=== PATIENT | male | born 1960 | race Caucasian/White ===

== ENCOUNTER 2019-05-02 00:06 | Emergency (ER) | payer OTHER ==
[~2019-05-02] VITALS: Ht 180.3 cm; Wt 102.1 kg
--- NOTE | 2019-05-02 00:15 | NUR ---
BIBS FOR EVALUATION OF CP STARTED AN HOURR AGO W/ A SYNCOPAL EPISODE , FALLING BACKWARD AND HITTING THE BACK OF HIS HEAD. PT DESCRIBED THE CP PRESSURE LIKE PAIN THAT RADIATES TO THE L ARM. - N/V. VSS. ON MONITOR
[2019-05-02 00:45] LABS: BASOPHILS % (AUTO) 1.1 % (0.0-2.0); EOSINOPHILS % (AUTO) 1.7 % (0.0-6.0); HEMATOCRIT 35 % (39-51); HEMOGLOBIN 11.5 g/dL (13.5-17.5); LYMPHOCYTES % (AUTO) 43.7 % (20.0-44.0); MEAN CORPUSCULAR HGB CONC 33 g/dl (31.0-36.0); MEAN CORPUSCULAR VOLUME 83 fL (80-96); MONOCYTES # (AUTO) 0.4 /CMM (0.1-1.30); MONOCYTES % (AUTO) 8.6 % (2.0-12.0); NEUTROPHILS # (AUTO) 2.1 /CMM (1.8-8.9); NEUTROPHILS % (AUTO) 44.9 % (43.0-81.0); PLATELET COUNT (AUTO) 342 /CMM (150-450); RED BLOOD CELL COUNT(AUTO) 4.21 MIL/uL (4.5-6.0); WHITE BLOOD COUNT (AUTO) 4.7 K/uL (4.3-11.0)
--- NOTE | 2019-05-02 00:59 | NUR ---
pt was picked up for ct
[2019-05-02 01:05] LABS: CALCIUM, SERUM 8.5 mg/dL (8.5-10.1); CARBON DIOXIDE 23 mmol/L (21-32); CHLORIDE 105 mmol/L (98-107); CREATININE 0.8 mg/dL (0.6-1.3); GLUCOSE 97 mg/dL (74-106); POTASSIUM 4.1 mmol/L (3.5-5.1); SODIUM SERUM 139 mmol/L (136-145); UREA NITROGEN, BLOOD 17 mg/dL (7-18)
--- NOTE | 2019-05-02 01:09 | NUR ---
BACK FROM CT SCAN
[2019-05-02] MEDS ORDERED: LORAZEPAM INJ 2 MG/ML VIAL IV ONE (01:30)
[2019-05-02] MEDS ORDERED: LORAZEPAM INJ 2 MG/ML VIAL ONE (01:31)
--- NOTE | 2019-05-02 02:00 | NUR ---
Patient is resting comfortably in bed with eyes closed. Easily aroused. no c/o pain or discomfort VSS. will cont to monitor .
--- NOTE | 2019-05-02 05:19 | NUR ---
IV removed. Catheter intact and site benign. Pressure and 4x4 applied to site. No bleeding noted.Patient discharged to home in stable condition. Rx and Written and verbal after care instructions given. Patient verbalizes understanding of instruction.
[2019-05-02 05:21] VITALS: BP 124/69
== END 2019-05-02 05:22 | disposition home or self-care (01) ==
LOC: ER 00:15
DX: R07.89 Other chest pain (principal); F41.9 Anxiety disorder, unspecified
CPT/HCPCS: 36415; 70450; 71045; 80048; 84484; 85025; 93005; 96374; 99284; J2060